=== PATIENT | male | born 1985 | race Caucasian/White ===

== ENCOUNTER → 2017-02-14 | Outpatient (REF) ==
--- NOTE | 2017-02-14 12:45 | REP ---
PARTIAL LUMBAR SPINE, THREE VIEWS: HISTORY: Degenerative disc disease. There is no acute fracture or subluxation. The L4-5 intervertebral disc is decreased in height consistent with disc degeneration. IMPRESSION: There is no acute fracture or subluxation. Signed by Cedric Crews MD 02/14/2017 01:10 P
--- NOTE | 2017-02-14 12:59 | REP ---
RIGHT ANKLE, FOUR VIEWS: HISTORY: Degenerative joint disease. There is no acute fracture or dislocation. The joint space is normal in appearance. IMPRESSION: There is no acute fracture or dislocation. Signed by Cedric Crews MD 02/14/2017 01:11 P
== END ==
LOC: M SMT 11:36
PROVIDERS: ATTEND Internal Medicine
DX: Z02.71 Encounter for disability determination (principal)

== ENCOUNTER → 2021-04-27 | Outpatient (CLI) | payer OTHER ==
--- NOTE | 2021-04-27 14:04 | REP ---
INDICATION: BACK PAIN. COMPARISON: 02/14/2017 TECHNIQUE: Three views FINDINGS: There is no change from the prior exam. There is no acute fracture subluxation. There is L4-5 disc space narrowing status quo. There is L2 superior endplate anterior lipping status quo. IMPRESSION: No change. <Electronically signed by Baldo Marion > 04/27/21 1400
== END ==
LOC: M RAD 13:34
PROVIDERS: ATTEND Internal Medicine
DX: M54.59 Other low back pain (principal)